=== PATIENT | female | born 1955 | race African-American/Black ===

== ENCOUNTER 2017-08-24 14:25 | Emergency (ER) | payer SELFPAY ==
[~2017-08-24] VITALS: Ht 165.1 cm; Wt 100.0 kg
[2017-08-24 17:01] LABS: BASO % 0.6 % (0.0-1.0); EOS % 0.4 % (0.0-3.0); IMMATURE GRANULOCYTE % 0.2 % (0-0); LYMPH # 2.2 10^3/uL (1.5-4.5); LYMPH % 40.8 % (24.0-44.0); MEAN CORPUSCULAR HEMOGLOBIN 23.9 pg (27.0-33.0); MEAN CORPUSCULAR HGB CONC 32.1 g/dl (32.0-36.5); MEAN CORPUSCULAR VOLUME 74.6 fl (80.0-96.0); MONO # 0.4 10^3/uL (0.0-0.8); MONO % 7.7 % (0.0-5.0); NEUTROPHILS # 2.7 10^3/uL (1.8-7.7); NEUTROPHILS % 50.3 % (36.0-66.0); PLATELET COUNT, AUTOMATED 381 10^3/uL (150-450); RED CELL DISTRIBUTION WIDTH 15.5 % (11.5-14.5); WHITE BLOOD COUNT 5.3 10^3/uL (4.0-10.0)
[2017-08-24 17:04] LABS: ANION GAP 8 MEQ/L (8-16); BLOOD UREA NITROGEN 12 MG/DL (7-18); CALCIUM LEVEL 10.4 MG/DL (8.8-10.2); CARBON DIOXIDE LEVEL 29 MEQ/L (21-32); CHLORIDE LEVEL 103 MEQ/L (98-107); CREATININE FOR GFR 0.78 MG/DL (0.55-1.02); GLOMERULAR FILTRATION RATE > 60.0 (>45); GLUCOSE, FASTING 81 MG/DL (80-110); POTASSIUM SERUM 4.2 MEQ/L (3.5-5.1); SODIUM LEVEL 140 MEQ/L (136-145)
--- NOTE | 2017-08-24 17:43 | REP ---
AP portable chest: 08/24/2017. Clinical history: Hypertension. Findings: There are no prior studies. Lungs are well inflated. The CP angles sharply defined. There is no effusion, infiltrate, atelectasis or mass. Heart not grossly enlarged. There are portable AP technique. There is some venous hypertension but no pulmonary edema. The aorta is calcified at the arch, mildly tortuous without aneurysm. Airway intact and the bony thorax without focal lesion. Impression: 1. Some mild venous hypertension without gross cardiomegaly, edema, effusion or acute infiltrate. 2. Mildly tortuous aorta without aneurysm. Airway intact. No other significant finding. Signed by Darryl Palmer MD 08/25/2017 08:48 P
[2017-08-24 18:09] VITALS: BP 161/91
--- NOTE | 2017-08-25 12:23 | ECGEPIP ---
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
== END 2017-08-24 18:10 | disposition home or self-care (01) ==
LOC: M ED 14:25
DX: I10 Essential (primary) hypertension (principal); T48.3X1A Poisoning by antitussives, accidental (unintentional), initial encounter